=== PATIENT | female | born 1985 | race Caucasian/White ===

== ENCOUNTER 2018-09-08 08:46 | Emergency (ER) | payer MEDICAID ==
[2018-09-08 09:42] LABS: ADD MAN DIFF? NO; ADD UMIC YES; UR ASCORBIC ACID 20 mg/dL (NEGATIVE); UR BACTERIA FEW /HPF (NONE SEEN); UR BILIRUBIN (Dip) NEGATIVE (NEGATIVE); UR BLOOD (Dip) 3+ mg/dL (NEGATIVE); UR CLARITY CLOUDY (CLEAR); UR COLOR YELLOW (YELLOW); UR GLUCOSE (Dip) NEGATIVE (NEGATIVE); UR KETONES (Dip) NEGATIVE (NEGATIVE); UR LEUKOCYTE ESTERASE (Dip) TRACE Leu/ul (NEGATIVE); UR MUCUS FEW /HPF (NONE SEEN); UR NITRITE (Dip) NEGATIVE (NEGATIVE); UR RBC 2 /HPF (0-5); UR SPECIFIC GRAVITY (Dip) 1.015 (1.003-1.030); UR SQUAMOUS EPITHELIAL CELL MODERATE /HPF (FEW); UR TOTAL PROTEIN (Dip) NEGATIVE (NEGATIVE); UR UROBILINOGEN (Dip) NEGATIVE (NEGATIVE); UR WBC 12 /HPF (0-5)
[2018-09-08 09:45] LABS: WHITE BLOOD COUNT 10.3 10^3/ul (4.8-10.8)
[2018-09-08 09:45] LABS: BASOPHILS % 0.4 % (0.0-2.0); EOSINOPHILS # 0.1 10^3/ul (0.0-0.5); HEMATOCRIT 37.3 % (37.0-47.0); HEMOGLOBIN 12.6 g/dl (12.0-16.0); LYMPHOCYTES # 2.1 10^3/ul (0.8-2.9); LYMPHOCYTES % 20.3 % (15.0-51.0); MEAN CORPUSCULAR HEMOGLOBIN 29.6 pg (29.0-33.0); MEAN CORPUSCULAR HGB CONC 33.8 g/dl (32.0-37.0); MEAN CORPUSCULAR VOLUME 87.8 fl (82.0-101.0); MEAN PLATELET VOLUME 8.9 fl (7.4-10.4); MONOCYTE # 0.7 10^3/ul (0.3-0.9); MONOCYTES % 6.4 % (0.0-11.0); NEUTROPHIL # 7.4 10^3/ul (1.6-7.5); NEUTROPHILS % 71.3 % (39.0-77.0); PLATELET COUNT 262 10^3/UL (140-415); RED BLOOD COUNT 4.25 10^6/ul (4.20-5.40)
== END 2018-09-08 11:50 | disposition home or self-care (01) ==
LOC: FTE 11:50
DX: O20.9 Hemorrhage in early pregnancy, unspecified (principal); R10.2 Pelvic and perineal pain; Z3A.11 11 weeks gestation of pregnancy
CPT/HCPCS: 36415; 76801; 81001; 84702; 85025; 86900; 86901; 99284-25

== ENCOUNTER 2018-11-06 03:29 | Emergency (ER) | payer OTHER, MEDICAID | END 2018-11-06 07:51 | disposition home or self-care (01) | LOC: FTE 07:51 | DX: O26.892 Other specified pregnancy related conditions, second trimester (principal); R05 Cough; Z3A.19 19 weeks gestation of pregnancy | CPT/HCPCS: 99282; Z7502 ==

== ENCOUNTER 2018-12-22 10:17 | Inpatient (IN) | payer OTHER, MEDICAID ==
[2018-12-22 11:19] LABS: ADD UMIC NO; UR ASCORBIC ACID NEGATIVE (NEGATIVE); UR BILIRUBIN (Dip) NEGATIVE (NEGATIVE); UR BLOOD (Dip) NEGATIVE (NEGATIVE); UR CLARITY CLEAR (CLEAR); UR COLOR YELLOW (YELLOW); UR GLUCOSE (Dip) 1+ mg/dL (NEGATIVE); UR KETONES (Dip) NEGATIVE (NEGATIVE); UR LEUKOCYTE ESTERASE (Dip) NEGATIVE Leu/ul (NEGATIVE); UR NITRITE (Dip) NEGATIVE (NEGATIVE); UR SPECIFIC GRAVITY (Dip) 1.004 (1.003-1.030); UR TOTAL PROTEIN (Dip) NEGATIVE (NEGATIVE); UR UROBILINOGEN (Dip) NEGATIVE (NEGATIVE)
[2018-12-22] MEDS: TERBUTALINE 1 MG/ML INJ SC ×2 (11:55→14:01)
[2018-12-22] MEDS: LACTATED RINGER'S 1,000 ML IV ×2 (11:56→15:00)
[2018-12-22] MEDS: MAGNESIUM SULFATE 4 GM/100 ML 100 ML IV (15:00)
[2018-12-22] MEDS: BETAMET NA PHOS/AC(6 MG/ML) 2 ML INJ SYG IM (15:11)
[2018-12-22] MEDS: MAGNESIUM SULFATE 20 GM/500 ML 500 ML IV (15:32)
[2018-12-22 16:14] LABS: ADD MAN DIFF? NO
[2018-12-22 16:15] LABS: WHITE BLOOD COUNT 14.2 10^3/ul (4.8-10.8)
[2018-12-22 16:15] LABS: BASOPHILS % 0.2 % (0.0-2.0); EOSINOPHILS % 0.2 % (0.0-7.0); HEMATOCRIT 35.7 % (37.0-47.0); HEMOGLOBIN 11.7 g/dl (12.0-16.0); LYMPHOCYTES # 2.5 10^3/ul (0.8-2.9); LYMPHOCYTES % 17.3 % (15.0-51.0); MEAN CORPUSCULAR HGB CONC 32.8 g/dl (32.0-37.0); MEAN CORPUSCULAR VOLUME 91.5 fl (82.0-101.0); MEAN PLATELET VOLUME 9.4 fl (7.4-10.4); MONOCYTES % 6.8 % (0.0-11.0); NEUTROPHIL # 10.4 10^3/ul (1.6-7.5); NEUTROPHILS % 73.5 % (39.0-77.0); PLATELET COUNT 247 10^3/UL (140-415); RED CELL DISTRIBUTION WIDTH 13.2 % (11.5-14.5)
[2018-12-22] MEDS: AMPICILLIN 2 GM/NS (PMX) 100 ML IVPB (17:41)
[2018-12-22 18:48] LABS: MAGNESIUM 4.3 mg/dl (1.7-2.5)
[2018-12-22] MEDS: AMPICILLIN 1 GM/NS (PMX) 50 ML IVPB (22:15)
[2018-12-23 01:22] LABS: MAGNESIUM 4.7 mg/dl (1.7-2.5)
[2018-12-23] MEDS: AMPICILLIN 1 GM/NS (PMX) 50 ML IVPB ×3 (02:16→10:36)
[2018-12-23] MEDS: MAGNESIUM SULFATE 20 GM/500 ML 500 ML IV ×2 (02:19→13:27)
[2018-12-23 06:55] LABS: MAGNESIUM 5.3 mg/dl (1.7-2.5)
[2018-12-23] MEDS: DEXTROSE 5%-LR 1,000 ML IV (10:37)
[2018-12-23 13:47] LABS: MAGNESIUM 5.3 mg/dl (1.7-2.5)
[2018-12-23] MEDS: BETAMET NA PHOS/AC(6 MG/ML) 2 ML INJ SYG IM (15:01)
[2018-12-23 19:14] LABS: MAGNESIUM 5.3 mg/dl (1.7-2.5)
[2018-12-24] MEDS: MAGNESIUM SULFATE 40GM/1000ML 1,000 ML IV (00:03)
[2018-12-24] MEDS: DEXTROSE 5%-LR 1,000 ML IV ×3 (00:07→14:55)
[2018-12-24 01:00] LABS: MAGNESIUM 4.4 mg/dl (1.7-2.5)
[2018-12-24 06:24] LABS: MAGNESIUM 5.1 mg/dl (1.7-2.5)
[2018-12-24] MEDS: DIPHENHYDRAMINE 25 MG CAP PO (09:18)
[2018-12-24 12:52] LABS: MAGNESIUM 5.2 mg/dl (1.7-2.5)
== END 2018-12-24 23:23 | disposition home or self-care (01) | DRG 833 ==
LOC: OBT 10:17 → L-D 10:17 → OBT 14:00 → L-D 14:00
DX: O60.02 Preterm labor without delivery, second trimester (principal); Z3A.27 27 weeks gestation of pregnancy
CPT/HCPCS: 36415; 76815; 76817; 81003; 83735; 85025; 87081